=== PATIENT | male | born 1985 | race Caucasian/White ===

== ENCOUNTER 2021-04-05 17:52 | Emergency (ER) | payer BC, SELFPAY ==
--- NOTE | ~2021-04-05 | CT_ITS ---
EXAMINATION: CT abdomen pelvis wo con DATE: 04/05/2021 19:45 INDICATION: Abdomen pain. Diarrhea. Previous appendectomy. TECHNIQUE: Computed tomography (CT) of the abdomen and pelvis was performed without intravenous contr ast. The dose-length product was 443.95 mGy-cm. Automated exposure control and iterative reconstructi on technique were employed. COMPARISON: CT dated 02/18/2004. FINDINGS: Lung bases are unremarkable. Heart size normal. No significant pleural or pericardial effus ion. The liver, spleen, pancreas, adrenal glands and kidneys are unremarkable for noncontrast CT. Gallblad gabino is present. No renal stones or hydronephrosis. Bladder is unremarkable. There are appendectomy ch anges. Gallbladder is present. Nonobstructive bowel gas pattern. No abnormal pelvic masses or fluid c ollections. No abnormal pelvic masses or fluid collections. Small fat-containing umbilical hernia. No acute osseous abnormality. No free air or free fluid. IMPRESSION: 1. No acute abdominal abnormality. Reviewed, dictated and finalized at location A.
[2021-04-05 18:16] VITALS: BP 120/83; PULSE 92; RESP 20; TEMP 36.4; O2SAT 98
[2021-04-05] MEDS: DICYCLOMINE HCL 10 MG CAPSULE 20 MG PO ×2 (18:35→21:11)
[2021-04-05 18:37] LABS: Basophils Absolute Auto 0.05 K/mm3 (0.00-0.10); Basophils Percent Auto 0.6 % (0.0-1.0); Eosinophils Absolute Auto 0.26 K/mm3 (0.02-0.50); Eosinophils Percent Auto 3.2 % (1.0-6.0); Hematocrit 41.2 % (40.0-54.0); Hemoglobin 14.3 g/dL (14.0-18.0); Immature Granulocyte Absolute 0.02 K/mm3 (0.00-0.00); Immature Granulocyte Percent A 0.2 % (0.0-0.0); Lymphocytes Absolute Auto 2.07 K/mm3 (1.10-4.50); Lymphocytes Percent Auto 25.7 % (18.0-42.0); Mean Corpuscular HGB Conc 34.7 g/dL (32.0-36.0); Mean Corpuscular Hemoglobin 31.6 pg (27.0-31.0); Mean Corpuscular Volume 91.2 fL (78.0-102.0); Mean Platelet Volume 9.4 fl (8.7-11.0); Monocytes Percent Auto 9.9 % (2.0-11.0); Neutrophils Absolute Auto 4.9 K/mm3 (1.7-7.2); Neutrophils Percent Auto 60.4 % (50.0-70.0); Platelet Count Result 329 K/mm3 (150-420); Red Blood Count 4.52 M/mm3 (4.70-6.10); Red Cell Distribution Width 11.9 % (11.6-14.4); White Blood Count 8.1 K/mm3 (4.8-10.8)
[2021-04-05 18:44] LABS: Add Urine Microscopic? NO; Appearance Urine Clear (Clear); Bilirubin Urine Negative (Negative); Blood Urine Negative (Negative); Color Urine Light Yellow (Yellow); Glucose Urine UA Negative (Negative); Ketones Urine Negative (Negative); Leukocyte Esterase Ur Negative LEU/UL (Negative); Nitrate Urine Negative (Negative); Protein Urine Negative (Negative); Urobilinogen Urine 0.2 mg/dL (0.2-1.0)
[2021-04-05 18:53] LABS: Alanine Aminotransferase 54 U/L (16-63); Alkaline Phosphatase 63 U/L (46-116); Anion Gap 14 mmol/L (8-16); Aspartate Amino Transferase 20 U/L (15-37); Bilirubin,Total 0.3 mg/dL (0.00-1.00); Blood Urea Nitrogen 12 mg/dL (7-18); Calcium 8.7 mg/dL (8.5-10.1); Carbon Dioxide 27 mmol/L (21-32); Chloride 100 mmol/L (98-108); Estimated CRCL calculation 96 ml/min; Estimated Glomerular Filt Rate > 60; Glucose 108 mg/dL (70-99); Lipase 124 U/L (73-393); Osmolality Calculated 292 mOsm/kg (285-295); Potassium 4.1 mmol/L (3.5-5.1); Sodium 141 mmol/L (136-145); Total Protein 7.3 g/dL (6.4-8.2)
[2021-04-05 18:57] LABS: Lactic Acid Reflex 1.2 mmol/L (0.4-2.0)
--- NOTE | 2021-04-05 19:26 | ED.ABDPAIN ---
HPI - Abdominal Pain General Chief Complaint: Abdominal Pain Stated Complaint: pain in (both) sides, lower back pain Time Seen by Provider: 04/05/21 18:20 Source: patient and family Mode of arrival: ambulatory Limitations: no limitations History of Present Illness HPI narrative: Patient comes in with complaint of RLQ pain, and right flank pain that has been moderately severe, mostly a dull pain, and ongoing for the last two days. He has denied fever and chills. He denies nausea. He has had no known injury or precipitating event causing the groin pain, or no obvious context. No other associated signs or symptoms. He has not taken any medications at home or tried to make the pain less with medications. MD elicited complaint: abdominal pain Pertinent past history: none Onset (ago): day(s) Pain Consistency: constant Location: RLQ Severity: moderate Pain scale (0-10): 6 Quality: cramping and aching Radiation: RLQ Migration to: RLQ and R flank Exacerbating factors: movement Relieving factors: rest Associated symptoms: denies other symptoms Treatments prior to arrival: NSAIDs Related Data Home Medications Medication Instructions Recorded Confirmed famotidine 40 mg PO HS 04/05/21 04/05/21 Allergies Allergy/AdvReac Type Severity Reaction Status Date / Time No Known Allergies Allergy Verified 04/05/21 18:22 Review of Systems Constitutional: Constitutional: Reports no additional constitutional complaints Eyes: Eyes: Reports no additional eye complaints ENT: Reports system reviewed and no additional complaints, except as documented Cardiovascular: Cardiovascular: Reports no additional cardiovascular complaints Respiratory: Respiratory: Reports no additional respiratory complaints Gastrointestinal: Gastrointestinal: Reports no additional gastrointestinal complaints Genitourinary: Genitourinary: Reports no additional male genitourinary complaints Musculoskeletal: Musculoskeletal: Reports no additional musculoskeletal complaints Integumentary/Breasts: Skin/Breast: Reports system reviewed and no additional complaints, except as docu Neurologic: Reports system reviewed and no additional complaints, except as documented Psychiatric: Psychiatric: Reports no additional psychiatric complaints Endocrine: Endocrine: Reports no additional endocrine complaints Hematologic/Lymphatic: Hematologic/Lymphatic: Reports no additional hematologic/lymphatic complaints Allergic/Immunologic: Allergic/Immunologic: Reports no additional allergic/immunologic complaints PMFSH Past Medical History Medical History GERD (gastroesophageal reflux disease) Surgical History Surgical History (Updated 04/06/21 @ 03:11 by Don Cook MD) Hx of appendectomy Family History Family History (Updated 04/06/21 @ 03:12 by Don Cook MD) Mother Ovarian cancer Father History of appendectomy Social History Social History (Updated 04/06/21 @ 03:14 by Don Cook MD) Smoking packs per day: 0.5 Smoking cigarettes per day: 10.0 Smoking status: Current every day smoker Tobacco type: cigarettes Alcohol intake: current Alcohol use details: 2 beers a night Substance use: never Living arrangements: with family Gender identity (if verbalized by the patient): Male Sexual Orientation (if Verbalized by the Patient): Straight or Heterosexual Exam Const: General: no acute distress and alert Orientation/consciousness: patient oriented x3 HENMT: Head: normal to inspection Ears: external ears normal and TM's normal bilaterally General nose exam: Normal external nose present Mouth: Yes Normal oral and palatal mucosa present Throat: posterior oropharynx normal Eyes: Conjunctivae: conjunctivae normal Neck: Neck: normal visual inspection and no lymphadenopathy Chest: Chest palpation & inspection: normal inspection of the chest Resp: Effort & Inspection:
[2021-04-05 21:12] VITALS: BP 104/75; PULSE 63; RESP 20; TEMP 36.7; O2SAT 98
== END 2021-04-05 21:13 | disposition home or self-care (01) ==
PROVIDERS: Emergency Provider Emergency Medicine
DX: B34.9 Viral infection, unspecified (principal)
CPT/HCPCS: 36415; 74176; 80053; 81003; 83605; 83690; 85025; 99283; 99284; A9270

== ENCOUNTER 2022-08-19 14:04 | Emergency (ER) | payer BC, SELFPAY ==
[2022-08-19 14:17] VITALS: BP 123/83; PULSE 89; RESP 16; TEMP 38.8; O2SAT 100
--- NOTE | 2022-08-19 15:09 | ED.URI ---
HPI - URI/Sore Throat General Chief Complaint: Upper Respiratory Infection Stated Complaint: FEVER/SINUS PRESSURE/CHILLS/SORE THROAT Time Seen by Provider: 08/19/22 14:50 Source: patient, family, RN notes reviewed and old records reviewed Mode of arrival: ambulatory Limitations: no limitations History of Present Illness HPI Narrative: 37 year old male accompanied by with complaints of sinus congestion with drainage, body aches, fevers,sore throat, sinus pressure and frontal headache and cough for the past 2 days. He reports that his kids had flu diagnosis last week and he wants tested to see if he has it too. He reports taking Sudafed for his sym[toms. Patient denies any shortness of breath with respirations even and nonlabored, cough is noted. MD elicited complaint: cough, sore throat and other (body aches) Pertinent past history: sinusitis and other (tobacco use) Pain scale (0-10): 4 Treatments prior to arrival: other (sudafed) Related Data Home Medications Medication Instructions Recorded Confirmed famotidine 20 mg tablet 40 mg PO HS 04/05/21 04/05/21 Allergies Allergy/AdvReac Type Severity Reaction Status Date / Time No Known Allergies Allergy Verified 04/05/21 18:22 Review of Systems Review of Systems: CONSTITUTIONAL: Reports malaise, chills, sweats, or fever. EYES: Denies visual changes, redness, or discharge. ENT: Reports rhinorrhea, congestion, sinus pain, otalgia and sore throat. CARDIOVASCULAR: Denies chest pain, palpitations, or edema. RESPIRATORY: Reports cough.? Denies dyspnea. GASTROINTESTINAL: Denies abdominal pain, nausea, vomiting, diarrhea SKIN: Denies rash or itching. MUSCULOSKELETAL:Reports myalgia. NEUROLOGIC:reports headache. All systems reviewed & are unremarkable except as noted in HPI and below PMFSH Past Medical History Medical History (Updated 08/25/22 @ 06:45 by Sarah Marino NP) Fracture of thumb left GERD (gastroesophageal reflux disease) Surgical History Surgical History (Updated 04/06/21 @ 03:11 by Don Cook MD) Hx of appendectomy Family History Family History (Updated 04/06/21 @ 03:12 by Don Cook MD) Mother Ovarian cancer Father History of appendectomy Social History Social History (Updated 04/06/21 @ 03:14 by Don Cook MD) Smoking packs per day: 0.5 Smoking cigarettes per day: 10.0 Smoking status: Current every day smoker Tobacco type: cigarettes Alcohol intake: current Alcohol use details: 2 beers a night Substance use: never Gender identity (if verbalized by the patient): Male Sexual Orientation (if Verbalized by the Patient): Straight or Heterosexual Comments At time of signature, agree with nursing past medical, surgical, social and family history. There is no relevant family history pertinent to the presenting complaint Exam Narrative: GENERAL: Well-appearing, well-nourished, and in no acute distress. HEAD: Normocephalic EYES: PERRLA, conjunctivae clear ENT: Nares clear, turbinates edematous and erythematous, clear discharge. Mucous membranes moist. TM pearly barron with dull light reflex bilaterally; no tragal tenderness. Oropharynx erythematous without lesions. Tonsils red enlarged and without exudate, no drooling, no hoarseness, no trismus, uvula midline.post nasal drainage, sinus pressure, headache. NECK: Supple. No lymphadenopathy CHEST: Clear to auscultation, breath sounds equal. No wheezing, rhonchi, rales, or stridor. No respiratory distress, speaks in full sentences.cough noted SAO2 100% on room air HEART: Regular rate and rhythm. No murmur heard. SKIN: Warm, dry, no rash. NEURO: Alert and oriented x3. PSYCH: Normal mood and affect Course Course Emergency Course: Patient is aware of diagnosis, understands and agrees to treatment plan.? Anticipatory guidance given.? Patient agrees to follow-up as directed and is aware of reasons to seek care at the emergency department.
== END 2022-08-19 15:26 | disposition home or self-care (01) ==
PROVIDERS: Emergency Provider Registered Nurse
DX: J32.9 Chronic sinusitis, unspecified (principal); F17.210 Nicotine dependence, cigarettes, uncomplicated; K21.9 Gastro-esophageal reflux disease without esophagitis
CPT/HCPCS: 87081; 87804; 87880; 99213; G0463

== ENCOUNTER 2022-10-08 18:21 | Emergency (ER) | payer BC, SELFPAY ==
--- NOTE | ~2022-10-08 | CT_ITS ---
EXAMINATION: CT abdomen pelvis w con DATE: 10/08/2022 20:37 INDICATION: neoplasm,colitis,ibs, bilat abd pain radiating into flanks TECHNIQUE: Computed tomography (CT) of the abdomen and pelvis was performed with 100 mL Omnipaque-350 intravenous contrast. Automated exposure control and iterative reconstruction technique were employe d. The dose-length product was 573.95 mGy-cm. COMPARISON: 04/05/2021. FINDINGS: Lower thorax: Unremarkable Liver: Normal. Biliary/Gallbladder: Gallbladder is partially collapsed. No bile duct dilation. Pancreas: No mass or duct dilation. Spleen: Normal. Adrenals:No mass. Kidneys: No mass, stone, or hydronephrosis. GI tract: No small or large bowel dilation. Appendix surgically absent. Diverticulosis without divert iculitis. Mesentery/Peritoneum: No ascites, mass, or free air. Retroperitoneum: No mass. Pelvis: Mild bladder wall thickening and inflammation in a partially distended urinary bladder. Remai emiliana pelvic organs are within normal limits. Soft Tissues: Small uncomplicated fat-containing umbilical hernia. Bones: No acute osseous finding. IMPRESSION: Mild bladder wall thickening which may be secondary to incomplete distention or cystitis. Otherwise, no acute abdominopelvic process detected. Reviewed, dictated and finalized at location [facility]
[2022-10-08 18:25] VITALS: PULSE 66; RESP 16; TEMP 36.8; O2SAT 98
[2022-10-08 18:54] LABS: Basophils Absolute Auto 0.1 K/mm3 (0.0-0.1); Basophils Percent Auto 0.6 % (0.2-1.2); Eosinophils Absolute Auto 0.2 K/mm3 (0-0.3); Eosinophils Percent Auto 2.7 % (0-4.4); Hematocrit 41.7 % (42.0-52.0); Hemoglobin 14.2 g/dL (14.0-18.0); Immature Granulocyte Absolute 0.01 K/mm3 (0.00-0.031); Immature Granulocyte Percent A 0.1 % (0-0.5); Lymphocytes Absolute Auto 2.19 K/mm3 (0.9-3.2); Lymphocytes Percent Auto 28.4 % (18.3-44.2); Mean Corpuscular HGB Conc 34.1 g/dl (32-36); Mean Corpuscular Hemoglobin 31.5 pg (26-34); Mean Corpuscular Volume 92.5 fl (80-100); Mean Platelet Volume 9.3 fl (7.4-10.4); Monocytes Absolute Auto 0.8 K/mm3 (0.1-0.6); Neutrophils Absolute Auto 4.5 K/mm3 (1.3-6.7); Neutrophils Percent Auto 58.2 % (45.5-73.1); Platelet Count Result 325 k/mm3 (150-375); Red Blood Count 4.51 M/mm3 (4.6-6.20); Red Cell Distribution Width 11.9 % (11.5-14.5); White Blood Count 7.7 K/mm3 (4.5-10.0)
[2022-10-08 19:04] LABS: Alanine Aminotransferase 62 U/L (6-50); Albumin Level 4.7 g/dL (3.5-5.1); Alkaline Phosphatase 57 U/L (38-126); Anion Gap 6 mmol/L (8-16); Aspartate Amino Transferase 33 U/L (17-59); Bilirubin,Total 0.3 mg/dL (0.2-1.3); Blood Urea Nitrogen 13 mg/dL (9-20); Carbon Dioxide 31 mmol/L (22-30); Chloride 99 mmol/L (98-107); Estimated CRCL calculation 95 ml/min; Estimated Glomerular Filt Rate > 60; Glucose 103 mg/dL (65-110); Lipase 86 U/L (23-300); Potassium 3.9 mmol/L (3.4-5.0); Sodium 136 mmol/L (137-145)
--- NOTE | 2022-10-08 19:55 | ED.ABDPAIN ---
HPI - Abdominal Pain General Chief Complaint: Abdominal Pain Stated Complaint: abd pain Time Seen by Provider: 10/08/22 19:44 Source: patient and family Mode of arrival: ambulatory Limitations: no limitations History of Present Illness HPI narrative: 37 years old white male came from home by private car complaining of diffuse abdominal pain mainly on the sides, radiating to lower back bilaterally started 1 and half to 2 months ago, gradually getting worse. Gets worse when laying down flat, better sitting up or standing. He denies any fever, chills, nausea, vomiting, diarrhea, constipation or urinary symptoms. Patient denies having similar symptoms. History of appendectomy, GERD. Related Data Home Medications Medication Instructions Recorded Confirmed famotidine 20 mg tablet 40 mg PO HS 04/05/21 04/05/21 Allergies Allergy/AdvReac Type Severity Reaction Status Date / Time amoxicillin [From Augmentin] AdvReac Diarrhea Verified 10/08/22 19:40 clavulanic acid AdvReac Diarrhea Verified 10/08/22 19:40 [From Augmentin] Review of Systems Review of Systems: All systems reviewed & are unremarkable except as noted in HPI and below PMFSH Past Medical History Medical History Fracture of thumb left GERD (gastroesophageal reflux disease) Surgical History Surgical History Hx of appendectomy Family History Family History Mother Ovarian cancer Father History of appendectomy Social History Social History Smoking packs per day: 0.5 Smoking cigarettes per day: 10.0 Smoking status: Current every day smoker Tobacco type: cigarettes Alcohol intake: current Alcohol use details: 2 beers a night Substance use: never Gender identity (if verbalized by the patient): Male Sexual Orientation (if Verbalized by the Patient): Straight or Heterosexual Exam Narrative: General appearance: Well-developed, well-nourished, restless, anxious Skin: Normal color Head: Normocephalic, nontraumatic Eyes: Clear conjunctiva ENT: Oropharynx normal, ears normal, nose normal Neck: Supple, nontender Chest and respiratory: Airway patent, no respiratory distress, no accessory muscle use Heart: Regular rate/rhythm Abdomen: Soft, nontender, no organomegaly, quiet bowel sounds Vascular: Normal peripheral pulses, normal capillary refill. Musculoskeletal: Normal range of motion, nontender back Neurologic: Alert and oriented ?3, RET[employer]ERK is normal as tested, no gross motor deficit Course Vital Signs Vital signs: Vital Signs Temperature 36.8 C 10/08/22 18:25 Pulse Rate 66 10/08/22 18:25 Respiratory Rate 16 10/08/22 18:25 Pulse Oximetry 98 10/08/22 18:25 Oxygen Delivery Room Air 10/08/22 18:25 Temperature 36.8 C 10/08/22 18:25 Pulse Rate 66 10/08/22 18:25 Respiratory Rate 16 10/08/22 18:25 Pulse Oximetry 98 10/08/22 18:25 Oxygen Delivery Room Air 10/08/22 18:25 MDM - Abdominal Pain MDM Narrative Medical decision making narrative: Patient presents with diffuse abdominal pain mainly on the side and the flank area bilaterally like cramps over the last 6 to 8 weeks. Constant, worse laying down flat, better sitting up and standing. He denies any recent new physical activity, does not have a physical job, denied recent workout. He denies any fever, chills, nausea, vomiting, diarrhea, constipation, urinary symptoms. Differential diagnosis because of the long period of symptoms, it is less likely to find somet
[2022-10-08 19:59] LABS: Add Urine Microscopic? NO; Appearance Urine Clear (Clear); Bilirubin Urine Negative (Negative); Blood Urine Negative (Negative); Color Urine Yellow (Yellow); Glucose Urine UA Negative (Negative); Ketones Urine Negative (Negative); Leukocyte Esterase Ur Negative LEU/UL (Negative); Nitrate Urine Negative (Negative); Protein Urine Negative (Negative); Urobilinogen Urine 0.2 mg/dL (<2.0); pH Urine 6.5 (5.0-9.0)
[2022-10-08] MEDS: SODIUM CHLORIDE 0.9% IV 1,000 ML 999 ML IV CONT (20:05)
[2022-10-08 20:14] LABS: Mucus Urine Rare /lpf; RBC Urine 0-2 /hpf (0-2); WBC Urine 0-3 /hpf
[2022-10-08 21:27] VITALS: PULSE 74; RESP 16; O2SAT 96
== END 2022-10-08 21:27 | disposition home or self-care (01) ==
PROVIDERS: Emergency Provider Emergency Medicine
DX: R10.9 Unspecified abdominal pain (principal); K21.9 Gastro-esophageal reflux disease without esophagitis; F17.210 Nicotine dependence, cigarettes, uncomplicated; R93.41 Abnormal radiologic findings on diagnostic imaging of renal pelvis, ureter, or bladder
CPT/HCPCS: 36415; 74177; 80053; 81003; 83690; 85025; 96360; 99284; J7030; Q9967